=== PATIENT | male | born 1960 | race Caucasian/White ===

== ENCOUNTER 2017-01-10 19:13 | Emergency (ER) | payer MEDICAID, OTHER ==
[~2017-01-10] VITALS: Ht 177.8 cm; Wt 50.8 kg
[2017-01-10] MEDS ORDERED: HYDR-548 PO (19:42)
[2017-01-10] MEDS ORDERED: TRAM50TA2 PO (19:42)
--- NOTE | 2017-01-10 19:42 | NUR ---
PATIENT UNABLE TO RECALL MEDICATION TAKING AT B/C FACILITY. PATIENT DOES NOT KNOWN NAME,ADDRESS AND PHONE # OF B/C
--- NOTE | 2017-01-10 21:00 | NUR ---
Patient requested taxi voucher but could not provide an address, education provided, patient asked for bus token instead which was given.
--- NOTE | 2017-01-10 21:02 | NUR ---
Patient given written and verbal discharge instructions. Patient verbalizes understanding of instructions. Patient is ambulatory with steady gait. Refuses offer of care home placement. Patient given list of available shelters in surrounding area.
== END 2017-01-10 21:12 | disposition home or self-care (01) ==
LOC: ER 19:14
DX: G89.29 Other chronic pain (principal); K21.9 Gastro-esophageal reflux disease without esophagitis; G35 Multiple sclerosis
CPT/HCPCS: 99283; A4663